=== PATIENT | female | born 1965 | race Two or more races ===

== ENCOUNTER 2017-12-28 05:36 | Inpatient (IN) | payer MEDICARE, MEDICAID ==
[~2017-12-28] VITALS: Ht 170.2 cm; Wt 77.1 kg
[2017-12-28 06:13] VITALS: BP 116/77
[2017-12-28] MEDS ORDERED: CEFAZOLIN 2 GM in IV D5W 50 ML IV ONE (07:00)
--- NOTE | 2017-12-28 07:10 | NUR ---
LINING MACHINE OPERATOR NOTE PT A/OX3 PT TAKEN TO OR FOR SX. AWAITING RETURN.
[2017-12-28] MEDS ORDERED: MIDAZOLAM HCL 2 MG/2ML VIAL ONE (07:18)
[2017-12-28] MEDS ORDERED: ROCURONIUM BROMIDE 50 MG/5 ML ONE (07:19)
[2017-12-28] MEDS ORDERED: MORPHINE SULFATE INJ 10 MG/ML DISP.SYRIN ONE (07:19)
[2017-12-28] MEDS ORDERED: LIDOCAINE 1%-EPI 1:100,000 20 ML VIAL ONE (08:23)
[2017-12-28] MEDS ORDERED: BACITRACIN 50000 UNITS/VIAL ONE (08:43)
[2017-12-28] MEDS ORDERED: THROMBIN (BOVINE) 5,000 UNITS VIAL TP ONE (09:38)
[2017-12-28] MEDS ORDERED: HEMOSTATIC MATRIX 10 ML 1 EACH PAD MC ONE (10:40)
[2017-12-28] MEDS ORDERED: ONDANSETRON HCL/PF 4 MG/2 ML VIAL ONE (11:12)
[2017-12-28] MEDS ORDERED: HYDROCODONE/APAP 5/325MG 1 EACH TABLET PO PRN (11:30)
[2017-12-28 12:00] VITALS: BP 119/60
--- NOTE | 2017-12-28 12:15 | NUR ---
RN RELIEF CHARGE NOTE PT RETURNED FROM OR. PT A/OX4 DR. MONSIVAIS @ BEDSIDE TALKING TO PT. R ANTERIOR NECK DRESSING DRY AND INTACT. DR. SILVESTRE ORDERED MORPHINE 1MG Q4 PRN. PAIN 05/02 RIGHT NOW. V/S WNL .
[2017-12-28] MEDS: DEXAMETHASONE SOD PHOSPHATE 4 MG/ML VIAL IV SCH ×2 (12:37→16:37)
[2017-12-28] MEDS ORDERED: MORPHINE SULFATE INJ 4 MG/ML DISP.SYRIN IV PRN (13:00)
[2017-12-28] MEDS ORDERED: DULO30CA2 PO (13:43)
[2017-12-28] MEDS ORDERED: ATOR10TA PO (13:43)
[2017-12-28] MEDS ORDERED: PREG200C PO (13:43)
--- NOTE | 2017-12-28 13:44 | NUR ---
ASSEMBLY LINE UPHOLSTERER NOTE CALLED DR. DELEON ORDERED DIET ADVANCEMENT TOLERATED. Addendum: 12/28/17 at 1412 by SANDEEP ORTA RN DR. DELEON ORDERED PATIENT OK TO AMB AND DISCONTINUE NOEL. IF ABLE TO TOLERATE LUNCH CAN HAVE REGULAR FOOD FOR DINNER.
[2017-12-28] MEDS: CEFAZOLIN 1 GM in IV D5W 50 ML IV SCH ×2 (13:48→20:42)
[2017-12-28 16:00] VITALS: BP 112/59
--- NOTE | 2017-12-28 19:25 | NUR ---
RN OPENING NOTES RECEIVED REPORT FROM SANDEEP DE LA GARZA. PATIENT A/A/O X4, ABLE TO VERBALIZE NEEDS. BREATHING EVEN & UNLABORED, TOLERATING ROOM AIR BUT W/ O2 2L VIA NC NEEDED FOR COMFORT. DENIES SOB OR DIFFICULTY BREATHING. SKIN WARM, DRY & INTACT W/ PULSES PRESENT. RIGHT FOREARM IV #20 INTACT & PATENT W/DRESSING CDI, SALINE LOCKED. C/O PAIN LEVEL 4 OUT OF 10 AFTER PAIN MED GIVEN BUT TOLERABLE FOR PATIENT. SAFETY MEASURES IN PLACE W/ CALL LIGHT WITHIN REACH & INSTRUCTED TO CALL IF PATIENT NEEDS ASSISTANCE. WILL CONTINUE TO MONITOR.
[2017-12-28 20:00] VITALS: BP 111/63
[2017-12-28] MEDS ORDERED: ANESTHESIA TRAY IN PYXIS 1 EA TRAY MC ONE (20:01)
[2017-12-29 04:00] VITALS: BP 114/70
[2017-12-29] MEDS: CEFAZOLIN 1 GM in IV D5W 50 ML IV SCH (04:33)
--- NOTE | 2017-12-29 07:10 | NUR ---
RN NOTES: PATIENT RESTING IN BED. NONLABORED BREATHING NOTED. NO SIGNS OF DISTRESS. AOX4. DENIES PAIN. IV SITE PATENT AND INTACT. WILL CONTINUE TO MONTIOR
[2017-12-29 08:00] VITALS: BP 120/72
[2017-12-29] MEDS ORDERED: DULOXETINE HCL 30 MG CAPSULE.DR PO SCH (09:00)
[2017-12-29] MEDS: DEXAMETHASONE SOD PHOSPHATE 4 MG/ML VIAL IV SCH (09:22)
[2017-12-29] MEDS ORDERED: PREGABALIN 100 MG CAPSULE PO SCH (09:30)
--- NOTE | 2017-12-29 12:17 | NUR ---
RN NOTES: PER DR WOODY'S ORDERS, PATIENT DISCHARGED HOME. PATIENT STABLE. NONLABORED BREATHING ON ROOM AIR. VITALS WNL. IV SITE REMOVED. PATIENT STATES FEELING BETTER AFTER [employer]CO ADMINISTRATION. ALL BELONGINGS RETURNED TO PATIENT. PATIENT LEFT WITH VIA PRIVATE CAR. PER DR. SYEDA Isaacs'S ORDERS, OK TO DISCHARGE PATIENT HOME. PER SURGEON'S ORDERS, KEEP DRESSING INTACT. PATIENT GIVEN HIS CONTACT INFO FOR A FOLLOW UP. PATIENT EDUCATED ON EXISTCARE AND MEDICATIONS. PATIENT VERBALIZING UNDERSTANDING. DRESSING INTACT NO DRAINAGE AT TIME OF DISCHARGE.
[2017-12-29] MEDS ORDERED: ATORVASTATIN 10 MG TABLET PO SCH (18:00)
== END 2017-12-29 12:16 | disposition home or self-care (01) | DRG 29 ==
LOC: DS 05:36 → MEDSG1 05:51
PROVIDERS: ADMIT Neurological Surgery; ATTEND Neurological Surgery
PROC: 0RG20K0 Fusion of 2 or more Cervical Vertebral Joints with Nonautologous Tissue Substitute, Anterior Approach, Anterior Column, Open Approach (ICD-10-PCS; 2017-12-28)
PROC: 0RT30ZZ Resection of Cervical Vertebral Disc, Open Approach (ICD-10-PCS; principal; 2017-12-28 07:30)
DX: M54.12 Radiculopathy, cervical region (principal); M50.022 Cervical disc disorder at C5-C6 level with myelopathy; M48.02 Spinal stenosis, cervical region; Z98.1 Arthrodesis status; Z90.710 Acquired absence of both cervix and uterus; Z96.659 Presence of unspecified artificial knee joint; I25.10 Atherosclerotic heart disease of native coronary artery without angina pectoris; G89.29 Other chronic pain; F41.9 Anxiety disorder, unspecified; F17.200 Nicotine dependence, unspecified, uncomplicated; F32.9 Major depressive disorder, single episode, unspecified
CPT/HCPCS: 36415; 72040-TC; 86850-TC; 86921-TC; 87081-TC; 88304-TC; 88305-TC; 88311-TC; 97116-TC; 97530-TC; J0690; J1100; J2250; J2270; J2405; J3490; J7030; J7060; Z7610